=== PATIENT | female | born 1985 | race African-American/Black ===

== ENCOUNTER 2016-12-08 23:03 | Inpatient (IN) | payer OTHER ==
[~2016-12-08 23:03] MED LIST: DSS100 PO; IBUP-1547 PO; PREN-114 PO
[2016-12-08] MEDS ORDERED: BENZOCAINE 20%/MENTHOL 56 GM SPRAY CANISTER TP PRN (23:45)
[2016-12-08] MEDS ORDERED: FentaNYL CITRATE-PF 100 MCG/2 ML VIAL IVP ONE (23:45)
[2016-12-08] MEDS ORDERED: LANOLIN 7 GM OINTMENT TP PRN (23:45)
[2016-12-08] MEDS ORDERED: ACETAMINOPHEN/CODEINE 300-30 MG TABLET PO PRN ×2 (23:45)
[2016-12-08] MEDS ORDERED: MEASLES/MUMPS/RUBELLA VACCINE, LIVE 0.5 ML/VIAL SQ ONE (23:45)
[2016-12-08] MEDS ORDERED: GLYCERIN/WITCH HAZEL LEAF 40 PADS JAR TP PRN (23:45)
[2016-12-08] MEDS ORDERED: RINGERS SOLUTION,LACTATED 1,000 ML IV PRN (23:53)
[2016-12-08] MEDS ORDERED: OXYTOCIN 30 UNITS/LACT RINGERS 500 ML IV ONE (23:53)
[2016-12-08] MEDS ORDERED: RINGERS SOLUTION,LACTATED 1,000 ML IV SCH (23:53)
[2016-12-09] MEDS ORDERED: LANOLIN 7 GM OINTMENT TP PRN
[2016-12-09] MEDS ORDERED: GLYCERIN/WITCH HAZEL LEAF 40 PADS JAR TP PRN
[2016-12-09] MEDS ORDERED: CITRIC ACID/SODIUM CITRATE 30 ML SOLUTION UDCUP PO PRN
[2016-12-09] MEDS ORDERED: MEASLES/MUMPS/RUBELLA VACCINE, LIVE 0.5 ML/VIAL SQ ONE
[2016-12-09] MEDS ORDERED: METOCLOPRAMIDE HCL 5 MG/ML 2 ML VIAL IVP PRN
[2016-12-09] MEDS ORDERED: ACETAMINOPHEN/CODEINE 300-30 MG TABLET PO PRN ×2
[2016-12-09] MEDS ORDERED: IBUPROFEN 600 MG TABLET PO PRN
[2016-12-09] MEDS ORDERED: BENZOCAINE 20%/MENTHOL 56 GM SPRAY CANISTER TP PRN
[2016-12-09 00:32] LABS: BASOPHILS % (AUTO) 0.2 % (0.0-2.0); EOSINOPHILS % (AUTO) 1.2 % (1.0-6.0); HEMATOCRIT 31.4 % (36-46); HEMOGLOBIN 10.2 g/dL (12.0-16.0); LYMPHOCYTES # (AUTO) 1.7 K/uL (1.0-4.8); LYMPHOCYTES % (AUTO) 29.9 % (22.0-44.0); MEAN CORPUSCULAR HEMOGLOBIN 30.6 pg (26.0-34.0); MEAN CORPUSCULAR HGB CONC 32.4 G/dL (31.0-37.0); MEAN CORPUSCULAR VOLUME 95 fL (80-100); MONOCYTES # (AUTO) 0.5 K/uL (0.1-1.0); MONOCYTES % (AUTO) 8.2 % (2.0-9.0); NEUTROPHILS # (AUTO) 3.5 K/uL (1.8-7.7); NEUTROPHILS % (AUTO) 60.5 % (40.0-70.0); RED BLOOD CELL COUNT(AUTO) 3.32 MIL/uL (4.00-5.20); WHITE BLOOD COUNT (AUTO) 5.7 K/uL (4.5-11.0)
[2016-12-09 01:53] VITALS: BP 114/63
[2016-12-09] MEDS: MAGNESIUM HYDROXIDE SUSPENSION 30 ML UDCUP PO SCH ×3 (02:11→21:00)
[2016-12-09] MEDS: IBUPROFEN 600 MG TABLET PO PRN ×3 (02:12→19:49)
[2016-12-09] MEDS: OXYGEN THERAPY IH SCH (08:00)
[2016-12-09] MEDS ORDERED: MAGNESIUM HYDROXIDE SUSPENSION 30 ML UDCUP PO SCH (09:00)
[2016-12-10] MEDS: IBUPROFEN 600 MG TABLET PO PRN (02:21)
[2016-12-10] MEDS: OXYGEN THERAPY IH SCH (08:00)
[2016-12-10] MEDS: MAGNESIUM HYDROXIDE SUSPENSION 30 ML UDCUP PO SCH (09:00)
[2016-12-10] MEDS ORDERED: IBUP-2070 PO (10:15)
[2016-12-10] MEDS ORDERED: DOCU250C91 PO (10:16)
== END 2016-12-10 10:50 | disposition home or self-care (01) | DRG 560 ==
LOC: OBSVTOIN 23:03 → 4S 23:03 → OBSVTOIN 23:29 → 4S 23:29 → UNDOADMOB 23:29 → INTOOBSV 23:29
PROVIDERS: ADMIT Specialist; ATTEND Specialist
PROC: 10E0XZZ Delivery of Products of Conception, External Approach (ICD-10-PCS; principal; 2016-12-08)
DX: O80 Encounter for full-term uncomplicated delivery (principal); Z37.0 Single live birth; Z3A.38 38 weeks gestation of pregnancy
CPT/HCPCS: 86850; 86900; 86901; J3010